=== PATIENT | female | born 2000 | race African-American/Black ===

== ENCOUNTER 2021-07-04 08:09 | Emergency (ER) | payer SELFPAY ==
[~2021-07-04] VITALS: Ht 165.1 cm; Wt 75.0 kg
[2021-07-04 08:13] VITALS: BP 122/86
[2021-07-04] MEDS ORDERED: TOPUD MT (09:05)
== END 2021-07-04 09:11 | disposition home or self-care (01) ==
LOC: ER 08:09
DX: R10.2 Pelvic and perineal pain (principal); Z00.00 Encounter for general adult medical examination without abnormal findings; Z88.0 Allergy status to penicillin; Z72.0 Tobacco use
CPT/HCPCS: 99284